=== PATIENT | female | born 1950 | race Caucasian/White ===

== ENCOUNTER 2023-11-11 00:07 | Day surgery (SDC) | payer MEDICARE, BC, SELFPAY ==
--- NOTE | 2023-11-06 09:31 | PM.IMHP ---
H&P: HPI History of Present Illness Date/Time: 11/06/23 09:31 Chief Complaint: device removal Narrative: she is InterStim device in place. It was placed by another physician. She desires removal Review of Systems Review of Systems: All systems reviewed & are unremarkable except as noted in HPI and below Exam Narrative: no acute distress normal breathing alert and orient x3 Assessment and Plan Assessment and plan (1) Urge incontinence: Code(s): N39.41 - Urge incontinence Status: Acute Assessment and Plan: desires removal of InterStim device. Understands risks of bleeding, infection, wound complications, incomplete device removal. Agrees to proceed
--- NOTE | 2023-11-09 13:18 | PC.NURSE ---
Report to the Outpatient Waiting Room, entrance under the green pavilion located off [facility], at time _7:30 AM on date __11/11/23 . Planned Procedure Time: __9:30 AM . Time changes happen often and if your time is changed the preop area will call you the afternoon before. - You and your visitor will be asked to self-screen and do not enter if you have any COVID symptoms. - A mask is optional within the hospital at this time. Patients may have clear liquids (water, carbonated beverages, clear teas, apple juice) until 3 hours prior to surgery( 6:30 AM) with a maximum of 20 ounces. - No food from midnight until time of surgery - Infants may have breast milk until 4 hours before surgery, infant formula 6 hours prior to surgery. - Children will be allowed to drink immediately following surgery. If applicable, please bring a bottle or sippy cup to assist with drinking. Juice, water, soda, and popsicles are readily available. For infants on formula, please bring formula the day of surgery. Pacifiers are allowed. Take the following medications with a SIP of water the morning of surgery: _LEVOTHYROXINE DO NOT STOP ANY OF YOUR OTHER PRESCRIPTION MEDICATIONS PRIOR TO SURGERY ?EXCEPT THE FOLLOWING Medications to discontinue per physician ___PT STATES LAST DOSE ELIQUIS 11/08/23 HOLD ALL VITAMINS AND SUPPLEMENTS 3 DAYS PRE OP .LAST DOSE 11/08/23__PT STATES Please no make-up, nail maltese, hairspray, perfume, deodorant, or body powder the day of surgery. No jewelry (including any body piercings) or valuables the day of surgery, leave them at home. Please take a shower or bath the night before, or the morning of, surgery with an antibacterial soap. Wear comfortable, loose fitting clothing. Children are encouraged to wear pajamas. - Jewelry must be removed prior to entering the operating room. Rings and piercings that are not removed may be cut off. - The hospital will not accept responsibility for valuables. - Please leave all valuables, including medications, at home the day of surgery. If you are going home after surgery, a licensed local company truck driver must drive you home. - NO public transportation without another adult if you receive anesthesia. - We recommend that an adult stay with you for 24 hours following discharge. - We also recommend that you do not drive, make important decision, drink alcoholic beverages, or take any drugs that were not prescribed by your health care provider for at least 24 hours after your discharge time. For Pediatric surgeries, we recommend two adults accompany the child home. Follow any additional instructions given to you from your surgeon. If you or anyone in your household have experienced Covid symptoms in the past week, please notify your surgeon or the nurse liaison at the phone number below for possible testing. Telephone instructions given to PATIENT and asked if any additional questions and then verbalized understanding. Patient advised to call surgeon office or pre surgery nurse liaison [phone] if any additional questions.
[2023-11-09 13:32] VITALS: BMI 40.6
--- NOTE | ~2023-11-11 | XR_ITS ---
XR fluoroscopy no charge Indication: Neurostimulator implant battery replacement TECHNIQUE: Fluoroscopy used during Neurostimulator implant battery replacement performed by [Carlos Marshall MD] on 11/11/2023. 19 seconds of fluoroscopy with one fluoroscopic images captured. FINDINGS: Correlate with procedure note. IMPRESSION: Fluoroscopy used during Neurostimulator implant battery replacement. Reviewed, dictated and finalized at location B. IMPRESSION: Fluoroscopy used during Neurostimulator implant battery replacement .
--- NOTE | 2023-11-11 06:22 | WPDHPUPDATE1 ---
History and Physical Update Update Date/Time: 11/11/23 06:22 History and Physical has been reviewed, including an updated exam of the patient. There are NO changes in the patient's condition. Risks, benefits, and alternatives have been discussed and questions answered. Patient agrees to proceed with procedure.
[2023-11-11 08:11] VITALS: BP 133/81; PULSE 74; RESP 14; TEMP 37; O2SAT 99
[2023-11-11] MEDS: LACTATED RINGERS 1,000 ML 30 ML IV CONT (08:25)
--- NOTE | 2023-11-11 08:41 | WPDANESEPPF ---
Anes - Initial Pre Proc Eval Procedure: Operation Date: 11/11/23 09:30 Proposed Procedures p Removal of Neurostimulator - Rafal Marshall MD Date/Time: 11/11/23 08:41 Surgeon: Rafal Marshall MD Pre Op Diagnosis: urge incontinence Patient Data Age: 73 Gender: F Height: 1.75 m Weight: 118.2 kg Last Vital Signs Temp 98.6 F 11/11/23 08:11 Pulse 74 11/11/23 08:11 Resp 14 11/11/23 08:11 BP 133/81 11/11/23 08:11 Pulse Ox 99 11/11/23 08:11 O2 Del Method Room Air 11/11/23 08:11 Allergies Allergy/AdvReac Type Severity Reaction Status Date / Time lisinopril Allergy Cough Verified 11/11/23 08:28 Home Medications Medication Instructions Recorded Confirmed Type apixaban 5 mg tablet (Eliquis) 5 mg PO BID 11/09/23 11/11/23 History cholecalciferol (vitamin D3) 10 10 mcg PO HS 11/09/23 11/09/23 History mcg (400 unit) tablet cyanocobalamin (vitamin B-12) 1,000 mcg PO HS 11/09/23 11/09/23 History 1,000 mcg tablet diltiazem HCl 180 mg 180 mg PO HS 11/09/23 11/09/23 History capsule,extended release 24 hr levothyroxine 75 mcg tablet 75 mcg PO DAILY 11/09/23 11/11/23 History losartan 100 mg tablet 100 mg PO HS 11/09/23 11/09/23 History metoprolol succinate 50 mg 50 mg PO HS 11/09/23 11/09/23 History tablet,extended release 24 hr fyyzmpyeukoo-mxmfkhbl-gsxmrl tablet 1 tablet PO DAILY 11/09/23 11/09/23 History Patient hx anesthesia problems: none Family hx anesthesia problems: none Results Review: All pre-operative results and documents have been reviewed as part of the pre-operative evaluation. [facility] Social History Social History Smoking status: Never smoker Living arrangements: alone Spiritual care concerns: No Anes - Eval Final PreProcedure Day of Procedure 11/11/23 08:41 Patient weight: obese Heart: regular rate and rhythm Lungs: clear to auscultation Airway: Mallampati scale class II Neurological: alert and oriented Last oral intake: >/= 8 hours ASA classification: III Emergent: no Anesthetic plan: proceed Anesthesia type and monitoring: general GIVS and standard monitoring Results Review: All pre-operative results and documents have been reviewed as part of the pre-operative evaluation. Informed Consent: The patient's anesthetic plan and its attendant risks and benefits were discussed with the patient/family/POA. Questions were solicited and answers provided to the satisfaction of the patient/family/POA.
[2023-11-11] MEDS: ceFAZolin 2 GM/D5W 50 ML 2 GM/50 ML BAG IVPB (09:06)
[2023-11-11] MEDS: BUPIVACAINE/EPINEPHRINE 0.5% 50 ML VIAL 20 ML INFILTRATE (09:19)
[2023-11-11 10:01] VITALS: BP 130/66; PULSE 81; RESP 16; O2SAT 99
--- NOTE | 2023-11-11 10:29 | W.PM.PROC2 ---
Procedure Note - Detailed Date of Procedure 11/11/23 Pre-op Diagnosis urge incontinence Post-op Diagnosis Same Procedure Performed Removal of sacral lead. Removal of implantable pulse generator Surgeon Rafal Marshall MD Anesthesia MAC and Local Indications She has InterStim device in place. She desires device to be removed due to lack of efficacy. She understands risks of bleeding, infection, incomplete removal. She agrees to proceed She also understands risks of wound complications Findings Uncomplicated removal of InterStim device Description of Procedure She was correctly identified. Informed consent obtained. She was brought into the operating room. She was given monitored anesthesia care. She was placed in the prone position. She was given appropriate anesthesia. Time-out performed. She was prepped and draped in a sterile fashion. She was given appropriate perioperative antibiotics I anesthetized the skin over the pulse generator. I incised the skin. I explanted the pulse generator and removed the capsule around the pulse generator. I then located the sacral lead on fluoroscopy. I anesthetized the skin. I incised the skin. I located the lead and removed it in its entirety. I irrigated all wounds. I assured hemostasis. I closed subcutaneous tissues with 2-0 Vicryl. Skin with 4-0 Vicryl. Glue was applied. She was awakened transferred to PACU in stable condition Estimated Blood Loss 3 Drains No Packing No Pathology None sent Complications No immediate complications Condition Stable Disposition PACU
[2023-11-11 10:30] VITALS: BP 119/75; PULSE 57; RESP 16
[2023-11-11 10:50] VITALS: BP 125/64; PULSE 57; RESP 16
== END 2023-11-11 11:03 | disposition home or self-care (01) ==
PROVIDERS: Visit Provider Urology
PROC: (CPT 64585; principal; 2023-11-11 09:30)
DX: Z45.42 Encounter for adjustment and management of neurostimulator (principal); N39.41 Urge incontinence; E66.9 Obesity, unspecified; Z68.38 Body mass index [BMI] 38.0-38.9, adult
CPT/HCPCS: 64585; 64595; 99199; J0690; J2405; J2704; J3010; J7120